=== PATIENT | female | born 1980 | race Caucasian/White ===

== ENCOUNTER 2021-08-26 06:14 | Emergency (ER) | payer OTHER ==
[2021-08-26 07:08] VITALS: BP 119/67; PULSE 72; TEMP 97.8; BMI 28.3
== END 2021-08-26 09:29 | disposition home or self-care (01) ==
LOC: JER 06:14 → JERFT 06:14
DX: Z01.419 Encounter for gynecological examination (general) (routine) without abnormal findings (principal)
CPT/HCPCS: 99281-25

== ENCOUNTER 2024-01-08 04:18 | Day surgery (SDC) | payer OTHER ==
[2024-01-04 10:17] VITALS: BMI 31.0
[2024-01-08] MEDS ORDERED: LIDOCAINE 1%/EPI 1:100000 (20 ML MULTI DOSE VIAL) ONE (10:49)
[2024-01-08] MEDS ORDERED: GENTAMICIN SO4 80 MG/2 ML VIAL ONE (10:49)
[2024-01-08] MEDS: LIDOCAINE 1%/EPI 1:100000 (20 ML MULTI DOSE VIAL) IJ ONE (11:11)
[2024-01-08] MEDS: ceFAZolin SODIUM 1 GM VIAL IVPB ONE (11:12)
[2024-01-08] MEDS: BACITRACIN ZINC 15 GM TUBE TOPICAL OINTMENT TP ONE (11:23)
[2024-01-08] MEDS ORDERED: BACITRACIN ZINC 15 GM TUBE TOPICAL OINTMENT ONE (11:23)
[2024-01-08] MEDS ORDERED: ONDANSETRON 4 MG/2 ML VIAL IVPUSH PRN (11:40)
[2024-01-08] MEDS ORDERED: oxyCODONE HCL 5 MG TABLET PO PRN (11:40)
[2024-01-08] MEDS: LACTATED RINGERS SOLUTION 1,000 ML IV SCH (13:24)
[2024-01-08 13:44] VITALS: RESP 18
[2024-01-08 17:12] VITALS: BP 108/66; PULSE 79; TEMP 97.3
== END 2024-01-08 16:25 | disposition home or self-care (01) ==
LOC: JASU-SURG 04:18
PROVIDERS: ATTEND Urology
PROC: 0TQD7ZZ Repair Urethra, Via Natural or Artificial Opening (ICD-10-PCS; principal; 2024-01-08 10:00)
DX: N39.3 Stress incontinence (female) (male) (principal)
CPT/HCPCS: 57240; C1771; 81025; 94760